=== PATIENT | male | born 1975 | race Caucasian/White ===

== ENCOUNTER → 2021-10-31 | Outpatient (CLI) | payer OTHER | LOC: KOH-I 15:52 | DX: M25.512 Pain in left shoulder (principal); R21 Rash and other nonspecific skin eruption; R07.81 Pleurodynia; S46.912A Strain of unspecified muscle, fascia and tendon at shoulder and upper arm level, left arm, initial encounter; V28.0XXD Motorcycle driver injured in noncollision transport accident in nontraffic accident, subsequent encounter | CPT/HCPCS: 73221 ==

== ENCOUNTER → 2021-12-13 | Outpatient (CLI) | payer OTHER | LOC: KOH-I 13:43 | DX: S43.205A Unspecified dislocation of left sternoclavicular joint, initial encounter (principal) | CPT/HCPCS: 71250 ==